=== PATIENT | male | born 1970 | race Caucasian/White ===

== ENCOUNTER 2016-10-22 17:16 | Inpatient (IN) | payer OTHER ==
[2016-10-22] MEDS ORDERED: SODIUM CHLORIDE 0.9% 1,000 ML IV STA ×2 (17:29)
[2016-10-22] MEDS ORDERED: HYDROmorphone 2 MG/ML 1 ML SYRINGE IVP STA (17:33)
[2016-10-22] MEDS ORDERED: ONDANSETRON 4 MG/2 ML VIAL IVP STA ×2 (17:33→17:46)
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
[2016-10-22 17:41] LABS: Basophils # (A) 0.1 k/uL (0-0.2); Basophils % (A) 1 %; CH 32.7; CHCM 35.2; Eosinophils # (A) 0.3 k/uL (0-0.7); Eosinophils % (A) 3 %; HCT 38.7 % (39.0-53.0); HDW 2.33; HGB 13.1 gm/dL (13.0-17.5); Luc # (Auto) 0.31; Luc % (Auto) 3; Lymphocytes # (A) 3.7 k/uL (1.0-4.8); Lymphocytes % (A) 36 %; MCH 31.6 pg (25.0-35.0); MCHC 33.8 g/dL (31.0-37.0); MCV 93.4 fL (80.0-100.0); Mean Platelet Volume 8.7; Monocytes # (A) 0.5 k/uL (0-1.0); Monocytes % (A) 5 %; Neutrophils # (A) 5.3 k/uL (1.3-7.7); Neutrophils % (A) 52 %; RBC 4.14 m/uL (4.30-5.90); RDW 13.7 % (11.5-15.5); WBC 10.3 k/uL (3.8-10.6); WBC (Perox) 10.03
[2016-10-22] MEDS ORDERED: LORazepam 2 MG/ML SYRINGE IV STA (17:47)
[2016-10-22] MEDS ORDERED: DIPH,PERTUS(ACELL)TETVAC-LF 0.5 ML VIAL IM ONE (17:47)
[2016-10-22] MEDS ORDERED: ceFAZolin 1,000 MG in DEXTROSE/WATER 1 50ML.BAG IVPB STA (17:48)
[2016-10-22 17:50] LABS: INR 1.1 (<1.2); Partial Thromboplastin Time 22.8 sec (22.0-30.0); Prothrombin Time 10.8 sec (9.0-12.0)
--- NOTE | 2016-10-22 17:50 | XR ---
EXAMINATION TYPE: XR chest 1V portable DATE OF EXAM: 10/22/2016 COMPARISON: NONE HISTORY: Trauma chest pain TECHNIQUE: Single frontal view of the chest is obtained. FINDINGS: Heart and mediastinum are normal. Lungs are clear. There is no sign of pleural effusion or pneumothorax. IMPRESSION: Normal chest
--- NOTE | 2016-10-22 17:51 | XR ---
EXAMINATION TYPE: XR pelvis AP view DATE OF EXAM: 10/22/2016 COMPARISON: NONE HISTORY: Trauma and pain TECHNIQUE: Single view FINDINGS: Pelvic ring is intact. Proximal femurs and hip joints are intact. Sacroiliac joints appear normal. Exam is limited slightly by rotation. IMPRESSION: Negative pelvis x-ray exam.
[2016-10-22 17:52] LABS: Glucose,Whole Blood 105 mg/dL (75-99)
--- NOTE | 2016-10-22 17:53 | XR ---
EXAMINATION TYPE: XR foot complete LT DATE OF EXAM: 10/22/2016 COMPARISON: NONE HISTORY: Trauma and pain TECHNIQUE: 2 views FINDINGS: There is a comminuted fracture of the proximal phalanx of the big toe left foot. There is p robably also a fracture of the tuft of the distal phalanx of the big toe. There is a nondisplaced fracture of the midshaft of the proximal phalanx of the third toe. There is probably a small chip fracture of the lateral base of the distal phalanx of the second toe. There is significant soft tissue deformity at the great toe. IMPRESSION: Multiple fractures with laceration deformity at the first MP joint.
[2016-10-22 17:55] LABS: ALT 31 U/L (21-72); AST 24 U/L (17-59); Alcohol <10 mg/dL; Alkaline Phosphatase 52 U/L (38-126); Amylase 39 U/L (30-110); Anion Gap 12 mmol/L; Blood Urea Nitrogen 16 mg/dL (9-20); Calcium 9.8 mg/dL (8.4-10.2); Carbon Dioxide 28 mmol/L (22-30); Chloride 103 mmol/L (98-107); Glucose 127 mg/dL (74-99); Non-African American GFR(MDRD) 58 (>60 ml/min/1.73 sqM); Potassium 3.9 mmol/L (3.5-5.1); Sodium 143 mmol/L (137-145); Total Bilirubin 0.4 mg/dL (0.2-1.3); Total Protein 7.5 g/dL (6.3-8.2)
[2016-10-22] MEDS ORDERED: HYDROmorphone 1 MG/ML 1 ML SYRINGE IVP STA ×2 (17:56)
[2016-10-22 17:57] LABS: Creatine Kinase 330 U/L (55-170)
[2016-10-22 18:08] LABS: Creatine Kinase MB 1.5 ng/mL (0.0-2.4); Troponin I <0.012 ng/mL (0.000-0.034)
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
[2016-10-22] MEDS ORDERED: HYDROmorphone 2 MG/ML 1 ML SYRINGE IVP PRN (19:37)
[2016-10-22] MEDS ORDERED: SUCCINYLCHOLINE CHLORIDE 100 MG/5 ML SYR IV ONE (20:39)
[2016-10-22] MEDS ORDERED: PROPOFOL 10 MG/ML 20 ML VIAL IV ONE (20:39)
[2016-10-22] MEDS ORDERED: IV FLUID CONTINUATION 500 ML IV ONE (20:39)
[2016-10-22] MEDS ORDERED: MIDAZOLAM 2 MG/2 ML VIAL ONE (20:39)
[2016-10-22] MEDS ORDERED: LIDOCAINE 1% INJ 10MG/ML (20 ML MDV) ONE (20:39)
[2016-10-22] MEDS ORDERED: ePHEDrine SULFATE/0.9% NACL/PF 50 MG/5 ML SYRINGE IV ONE (20:39)
[2016-10-22] MEDS ORDERED: ONDANSETRON 4 MG/2 ML VIAL ONE (20:39)
[2016-10-22] MEDS ORDERED: fentaNYL (PF) 50 MCG/ML 2 ML AMP ONE (20:39)
[2016-10-22] MEDS ORDERED: ceFAZolin 1,000 MG VIAL ONE (20:39)
[2016-10-22] MEDS ORDERED: SODIUM CHLORIDE 0.9% 100 ML with ceFAZolin 2,000 MG IV ONE ×2 (20:55)
[2016-10-22] MEDS ORDERED: LACTATED RINGERS 1,000 ML IV ONE ×2 (21:25)
[2016-10-22] MEDS ORDERED: HYDROcodone/APAP 5-325MG 1 EACH TAB PO PRN (22:17)
[2016-10-22] MEDS ORDERED: ONDANSETRON 4 MG/2 ML VIAL IVP PRN (22:17)
[2016-10-22] MEDS ORDERED: NALOXONE 0.4 MG/ML 1 ML VIAL IV PRN (22:17)
[2016-10-22] MEDS ORDERED: HYDROmorphone 1 MG/ML 1 ML SYRINGE IVP PRN (22:17)
[2016-10-22 22:24] VITALS: RESP 16
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
[2016-10-22] MEDS: HYDROmorphone 1 MG/ML 1 ML SYRINGE IVP ONE ×2 (22:40→22:45)
[2016-10-22] MEDS ORDERED: HYDROmorphone 1 MG/ML 1 ML SYRINGE IVP ONE (22:54)
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
[2016-10-22] MEDS: ceFAZolin 2 GM in SODIUM CHLORIDE 0.9% 100 ML IVPB SCH (23:39)
[2016-10-23] MEDS: HYDROcodone/APAP 5-325MG 1 EACH TAB PO PRN ×2 (02:24→09:59)
[2016-10-23] MEDS: HYDROmorphone 1 MG/ML 1 ML SYRINGE IVP PRN ×6 (03:25→21:58)
--- NOTE | 2016-10-23 07:00 | FL ---
EXAMINATION TYPE: FL guidance operating room, XR foot limited LT DATE OF EXAM: 10/22/2016 CLINICAL HISTORY: Left toe open traumatic fracture TECHNIQUE: Fluoroscopy. Intraoperative limited views left foot. COMPARISON: Left foot x-ray earlier today FINDINGS: Fluoroscopic guidance was provided during left first toe amputation procedure performed by Dr. Villatoro. A total of 2 seconds of fluoroscopic time was utilized during the procedure and 1 spo t intraoperative image is acquired. Single intraoperative image acquired shows amputation defect midshaft level of first metacarpal. IMPRESSION: As Above.
[2016-10-23] MEDS: ceFAZolin 2 GM in SODIUM CHLORIDE 0.9% 100 ML IVPB SCH ×3 (08:38→23:15)
[2016-10-23] MEDS: ENOXAPARIN 40 MG/0.4 ML SYRINGE SQ SCH (08:40)
[2016-10-23] MEDS ORDERED: ONDANSETRON 4 MG/2 ML VIAL IVP PRN (08:42)
--- NOTE | 2016-10-23 08:42 | P.PN ---
Subjective This morning the patient is complaining of isolated pain in his left foot. He has no other complaints. He denies chest pain or shortness of breath. Objective - Vital Signs Vital signs: Vital Signs Temp 98.1 F 10/23/16 07:00 Pulse 77 10/23/16 07:00 Resp 16 10/23/16 07:00 BP 113/70 10/23/16 07:00 Pulse Ox 95 10/23/16 07:00 Intake & Output 10/22/16 10/23/16 10/23/16 18:59 06:59 18:59 Intake Total 2050 Output Total 650 Balance 1400 Weight 63.503 kg Intake: IV 1200 Intake, IV Titration 600 Amount Sodium Chloride 0.9% 1, 500 000 ml @ 100 mls/hr IV . Q10H STA Rx#:[id number] ceFAZolin 2 gm In Sodium 100 Chloride 0.9% 100 ml @ 100 mls/hr IVPB Q8HR ANA CRISTINA Rx#:[id number] Oral 250 Output: Urine 600 Estimated Blood Loss 50 Other: # Voids 1 - Exam The patient is in no apparent distress and is alert and oriented 3. A focused examination of the left lower extremity was conducted. On inspection of the left foot there is a clean dressing and Tito wrap over the foot with an seasonal wound VAC in place with a good seal. The second through fifth toes are warm and well perfused with brisk capillary refill. - Labs CBC & Chem 7: 10/22/16 17:25 10/22/16 17:25 Labs: Abnormal Lab Results - Last 24 Hours (Table) 10/22/16 10/22/16 10/22/16 Range/Units 17:25 17:25 17:25 RBC 4.14 L (4.30-5.90) m/uL Hct 38.7 L (39.0-53.0) % Creatinine 1.34 H (0.66-1.25) mg/dL Glucose 127 H (74-99) mg/dL POC Glucose (mg/dL) (75-99) mg/dL Total Creatine Kinase 330 H (55-170) U/L Lipase 316 H (23-300) U/L 10/22/16 Range/Units 17:50 RBC (4.30-5.90) m/uL Hct (39.0-53.0) % Creatinine (0.66-1.25) mg/dL Glucose (74-99) mg/dL POC Glucose (mg/dL) 105 H (75-99) mg/dL Total Creatine Kinase (55-170) U/L Lipase (23-300) U/L Assessment and Plan (1) Open fracture of proximal phalanx of toe of left foot Status: Acute (2) Open fracture of proximal phalanx of toe of left foot Status: Acute Plan: Postoperative day #1 status post I&D left great toe open fracture, partial first ray resection, and application of incisional wound VAC. Non-operative management of 3rd toe proximal phalanx fracture. #1. The patient is to remain strictly nonweightbearing on his left lower extremity. We will order a tall cam boot. #2. We'll leave the incisional wound VAC on until postoperative day #2 at which point a can be discontinued and a dressing can be applied to the foot. #3. We'll continue the patient on Ancef while in the hospital and discharge him home on Bactrim double strength twice a day 2 weeks. #4. The patient's wound was able to be primarily closed and the skin appeared viable. Due to the significant nature of his injury with an open fracture, however, I would like to have the wound team on board to help evaluate the patient and make appropriate recommendations for wound care going forward and establish a relationship with the patient should he need further follow-up in the wound center following discharge due to his significant injury. #5. Anticipate discharge home tomorrow.
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
[2016-10-23] MEDS ORDERED: SENNOSIDES-DOCUSATE SODIUM 1 EACH TAB PO SCH (21:00)
[2016-10-24] MEDS: HYDROcodone/APAP 5-325MG 1 EACH TAB PO PRN (00:30)
[2016-10-24] MEDS: HYDROmorphone 1 MG/ML 1 ML SYRINGE IVP PRN ×2 (03:19→08:04)
[2016-10-24 07:13] VITALS: BP 124/68; PULSE 77; TEMP 98.5
[2016-10-24] MEDS: ceFAZolin 2 GM in SODIUM CHLORIDE 0.9% 100 ML IVPB SCH (09:11)
[2016-10-24] MEDS: ENOXAPARIN 40 MG/0.4 ML SYRINGE SQ SCH (09:11)
[2016-10-24] MEDS ORDERED: oxyCODONE-APAP 5-325MG 1 EACH TAB PO PRN (09:18)
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
--- NOTE | 2016-10-24 16:51 | PN ---
PROGRESS NOTE DATE OF SERVICE: 10/24/2016 REASON FOR FOLLOW UP: Left foot wound. INTERVAL HISTORY: The patient is afebrile. He is breathing comfortably. Denies significant chest pain or shortness of breath. No abdominal pain or diarrhea. Pain to the left foot currently controlled. EXAMINATION: Blood pressure is 124/50 with a pulse of 77, temperature 98.5. He is 93% on room air. GENERAL DESCRIPTION: A young male lying in bed, in no distress. RESPIRATORY SYSTEM: Unlabored breathing. Clear to auscultation anteriorly. HEART: S1, S2 regular rate. ABDOMEN: Soft. No tenderness. Left foot first toe amputated. Wound is currently closed with no open area. Some swelling but no redness and no drainage. LABORATORY DATA: No new labs today. IMPRESSION: Patient with trauma to his left foot with complicated fracture status post left first ray amputation. The incision is currently closed with no open wound. Surgery recommending dressing and an Tito wrap to keep the swelling down. This should be appropriate at this point. Patient advised if any redness to the area or the wound opens to call us. MMODL / IJN: [id number] /
== END 2016-10-24 15:33 | disposition home or self-care (01) | DRG 476 ==
LOC: EC 17:16 → 3SUR 19:36
PROVIDERS: ADMIT Orthopaedic Surgery; ATTEND Orthopaedic Surgery
PROC: 0QBR0ZZ Excision of Left Toe Phalanx, Open Approach (ICD-10-PCS; 2016-10-22)
PROC: 0Y6N0Z9 Detachment at Left Foot, Partial 1st Ray, Open Approach (ICD-10-PCS; principal; 2016-10-22 20:00)
DX: S92.412B Displaced fracture of proximal phalanx of left great toe, initial encounter for open fracture (principal); F12.90 Cannabis use, unspecified, uncomplicated; S92.912B Unspecified fracture of left toe(s), initial encounter for open fracture; V86.59XA Driver of other special all-terrain or other off-road motor vehicle injured in nontraffic accident, initial encounter
CPT/HCPCS: 36415; 71010; 72170; 80053; 80320; 82150; 82550; 82553; 83605; 83690; 84484; 85025; 85610; 85730; 86850; 86900; 86901; 90471; 90715; 93005; 96361; 96365; 96375; 99285